=== PATIENT | female | born 1990 | race Caucasian/White ===

== ENCOUNTER 2016-06-30 10:38 | Emergency (ER) | payer OTHER ==
[~2016-06-30] VITALS: Ht 147.3 cm; Wt 87.7 kg
[2016-06-30 10:50] VITALS: BP 130/76; PULSE 100; RESP 16; O2SAT 98
--- NOTE | 2016-06-30 11:49 | ED.REPORT ---
HPI-URI / Cough / Cold Date of Service Jun 30, 2016 ED Provider: Ozzie Nieto PA-C Sandra is a 25-year-old female with a history of asthma who presents with chief complaint of cough. She reports a three-day history of cough, global headache and facial pain surrounding her eyes, green rhinorrhea, fatigue, weakness, reduced appetite. She states she has a "permanent cough" due to her asthma. She treats her asthma with albuterol and Prempro where and states that she has both of these in supply. Denies fever, myalgia, abdominal pain, vomiting, diarrhea, urinary symptoms. She states that she moved from [place] approximately 3 years ago does not a primary care provider. She has been getting her inhalers through emergency room visits. She presents with her 2 children who have similar symptoms. Nursing Notes Stated Complaint: BAD COUGH,HEADACHE,FACE HURTS Chief Complaint: FLU/Cold Symptoms Nursing Notes Reviewed: Yes Allergies: Coded Allergies: celecoxib (Verified Allergy, Unknown, Rash, 06/30/16) General Time Seen by MD: 11:01 Chief Complaint Cough, non-productive Past Medical History Past Medical History Reports: Asthma Review of Systems Review of Systems Note: Negative unless stated otherwise in history of present illness Physical Exam General: Well appearing, well developed, obese, no acute distress. Head: Atraumatic, normocephalic. No mastoid tenderness. Eyes: No scleral icterus or injection. No discharge. PERRL. Vision grossly intact. Ears: Pinna and tragus nontender with manipulation. External auditory canal patent, atraumatic and without discharge. Tympanic membrane rodriguez, shiny and translucent without fluid, bulging, retraction or perforation. Hearing grossly intact. Nose: Symmetrical, nares patent without discharge. No frontal or maxillary sinus tenderness. Mouth/pharynx: normal dentition, mucus membranes moist. Tonsils 2+ and symmetrical, uvula midline. Pharynx noninjected, no cobblestoning or discharge. Voice clear. Neck: No tenderness or lymphadenopathy. Trachea midline. Respiratory: Clinically evident cough. Regular rate and rhythm. Breath sounds present, clear to auscultation and equal bilaterally. No respiratory distress. No increased work of breathing, speaks in complete sentences. Cardiovascular: Regular rate and rhythm, without murmur, gallop or rub. No pedal edema. Gastrointestinal: Obese abdomen non-tender without guarding or rebound. Bowel sounds normoactive. Skin: Warm and dry. Neurological: Grossly nonfocal. Psychological: Alert and oriented. Speech appropriate, linear and logical. Behavior appropriate. Initial Vital Signs Vital Signs (First) Date Time Temp Pulse Resp B/P Pulse Ox O2 Delivery O2 Flow Rate FiO2 06/30/16 10:50 36.0 100 16 130/76 98 Room Air Initial VS: Reviewed, Vital signs normal Re-Eval/Medical Decision Med Decision/Clinical Course 25 female with history of asthma presents with chief complaint of cough. She presents with a three-day history of cough associated with headache and facial pain. Physical examination is benign with clear lung sounds and negative sinus tenderness. Vital signs are within normal limits. I believe this is a viral upper respiratory tract infection and of little concern for pneumonia, strep, bacterial sinusitis. It is not seemed to be an asthma exacerbation as the patient's lung sounds are clear. She states that she has a supply of her pro- air and albuterol. Advised regarding [id number] symptomatically treatment. She does not have a primary care provider and we have provided a referral. Advised establishing care as soon as possible. Provide emergent return precautions. Patient understands and agrees with plan Discharge & Departure Impression: Primary Impression: Upper respiratory infection URI type: unspecified URI Qualified Code: J06.9 - Acute upper respiratory infection, unspecified Disposition: Home Discharge Condition All VS Reviewed: Yes Condition: Stable Patient Instructions: Upper Respiratory Infection (ED) Additional Instructions: History and physical are reassuring that this is unlikely to be a condition such as pneumonia or strep throat that requires antibiotic treatment. I believe that you have a viral upper respiratory infection. Rest, drink small amounts of fluids throughout the day, and eat small amounts of food as tolerated. The treatment is largely symptomatic: I typically recommend doxylamine/ dextromethorphan (brand name: Robitussin Extra Strength Nighttime Cough DM) for use at night, which will help you sleep and reduce cough. If your pharmacy does not have this, ask your pharmacist to recommend an alternative. Pain and fever is best treated with 400 mg of ibuprofen (Advil, Motrin) every 6 hours, or 1000 mg of acetaminophen (Tylenol) every 6 hours. These drugs can be taken at the same time for more severe pain. Pseudoephedrine (Sudafed) taken in the morning will help relieve nasal congestion. In many pharmacies this is kept behind the counter, so ask the pharmacist. Cepacol lozenges are very helpful for sore throat. I will provide you with a referral for primary care follow-up. Please contact them tomorrow to establish care both the follow-up on your current illness and follow your asthma. Return to the emergency department for new or worsening symptoms including chest pain, shortness of breath, difficulty breathing or speaking. Referrals: Romie Villalpando MD EDSupervising Provider for [facility]: Evelyn Reyes MD copies to: Romie Villalpando MD, Seth PA-C Jun 30, 2016 11:49
== END 2016-06-30 12:51 | disposition home or self-care (01) ==
LOC: SED 10:38
DX: J06.9 Acute upper respiratory infection, unspecified (principal); J45.909 Unspecified asthma, uncomplicated; Z88.6 Allergy status to analgesic agent